=== PATIENT | male | born 1955 | race Caucasian/White ===

== ENCOUNTER 2017-01-31 23:26 | Emergency (ER) | payer MEDICARE, OTHER ==
--- NOTE | ~2017-01-31 | CR93 ---
[facility] A Service of [facility] & [facility] / [facility] RADIOLOGY TEXT RESULTS PATIENT: FADUMO DUGGAN LOCATION: [facility] : 57 UNIT #: [id number] AGE: [address]: Meli Bal MD SEX: M ORDER DR: [id number] [facility] [address] [place], [place] [address] [id number] E MR#: [id number] Acc #: [id number] NAME: FADUMO DUGGAN : 1955 SEX: M STUDY DATE/TIME: 02/01/2017 22:40 UNIT: [facility] ROOM: STUDY DESCRIPTION: CR Elbow Min 3 Views Lt Attending Physician: Meli Bal M.D. Ordering Physician: Meli Bal M.D. Primary Care Physician: No Primary Care Physician MEDICAL IMAGING REPORT This report is preliminary unless electronic signature is present EXAM Left elbow 01/31/2017 at 2252 INDICATION Elbow pain after fall today. FINDINGS 3 views of the left elbow were obtained. There is no fracture or malalignment. There is no joint effusion. There is some mild degenerative spurring about the epicondyles of the distal humerus. IMPRESSION Mild degenerative spurring about the elbow, otherwise negative. No acute findings. Dictated by... Nehemias Watson Jr., M.D. THIS IS AN ELECTRONICALLY VERIFIED REPORT Nehemias Watson Jr., M.D. at 02/01/2017 12:38 PM TRACIE/lilo TD: 02/01/2017 09:24 JOB #: [id number] MEDICAL IMAGING REPORT COPY
--- NOTE | ~2017-01-31 | CR141 ---
[facility] A Service of [facility] RADIOLOGY TEXT RESULTS PATIENT: FADUMO DUGGAN LOCATION: [facility] : 57 UNIT #: [id number] AGE: [address]: Meli Bal MD SEX: M ORDER DR: [id number] [facility] [address] [place], [place] [address] [id number] E MR#: [id number] Acc #: [id number] NAME: FADUMO DUGGAN : 1955 SEX: M STUDY DATE/TIME: 01/31/2017 22:50 UNIT: [facility] ROOM: STUDY DESCRIPTION: CR Hand Min 3 Views Lt Attending Physician: Meli Bal M.D. Ordering Physician: Meli Bal M.D. Primary Care Physician: No Primary Care Physician MEDICAL IMAGING REPORT This report is preliminary unless electronic signature is present EXAM Left hand, 01/31 at 2250 INDICATIONS Hand laceration and pain after fall today. FINDINGS 3 views of the left hand were obtained. There is some mild osteoarthritic change in the distal interphalangeal joints of the fingers and thumb. No acute fracture or malalignment is seen. 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 Dictated by... Nehemias Watson Jr., M.D. THIS IS AN ELECTRONICALLY VERIFIED REPORT Nehemias Watson Jr., M.D. at 02/01/2017 12:38 PM TRACIE/jimmie TD: 02/01/2017 09:11 JOB #: [id number] MEDICAL IMAGING REPORT COPY
--- NOTE | ~2017-01-31 | CR20 ---
[facility] A Service of [facility] RADIOLOGY TEXT RESULTS PATIENT: FADUMO DUGGAN LOCATION: [facility] : 57 UNIT #: [id number] AGE: [address]: Meli Bal MD SEX: M ORDER DR: [id number] [place] [id number] [facility]. [place], [place] [address] [id number] E MR#: [id number] Acc #: [id number] NAME: FADUMO DUGGAN : 1955 SEX: M STUDY DATE/TIME: 01/31/2017 22:50 UNIT: [facility] ROOM: STUDY DESCRIPTION: CR Ankle Min 3 Views Lt Attending Physician: Meli Bal M.D. Ordering Physician: Meli Bal M.D. Primary Care Physician: No Primary Care Physician MEDICAL IMAGING REPORT This report is preliminary unless electronic signature is present EXAM Left ankle, 3 views. HISTORY Ankle pain after fall today. FINDINGS 3 views of left ankle demonstrate satisfactory bone alignment. Anterior plate and screw fixation of the distal tibia extending to the distal tibial metaphysis. The most distal fixation screw is backed out approximately 1 cm. Lateral side plate and screw fixation of the distal fibula. Generalized demineralization. Mild degenerative changes. No acute fracture. IMPRESSION 1. No acute finding. Internal fixation distal tibia and fibula. The most distal fixation screw in the tibia has backed out 1 cm along the anterior margin of the distal tibial metaphysis. 2. No acute fracture. 3. Mild degenerative changes. Dictated by... Boogie Castrejon M.D. THIS IS AN ELECTRONICALLY VERIFIED REPORT Boogie Castrejon M.D. at 02/01/2017 11:27 PM DFL/mihir TD: 02/01/2017 09:09 JOB #: [id number] MEDICAL IMAGING REPORT [facility] A Service of [facility] RADIOLOGY TEXT RESULTS PATIENT: FADUMO DUGGAN LOCATION: [facility] : 57 UNIT #: [id number] AGE: [address]: Meli Bal MD SEX: M ORDER DR: COPY
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
[~2017-01-31 23:26] MED LIST: LORTAB 5/500 TA1 TA1 PO
[2017-02-01 00:23] LABS: AMPHETAMINE NEG (NEG); BARBITURATES NEG (NEG); BENZODIAZEPINES POS (NEG); COCAINE NEG (NEG); MARIJUANA NEG (NEG); OPIATES NEG (NEG); TRICYCLIC ANTIDEPRESSANTS NEG (NEG); U METHADONE NEG (NEG)
== END 2017-02-01 01:18 | disposition home or self-care (01) ==
LOC: CED 23:26
PROVIDERS: Emergency Medicine
DX: S50.312A Abrasion of left elbow, initial encounter (principal); S60.512A Abrasion of left hand, initial encounter; F10.10 Alcohol abuse, uncomplicated; F17.210 Nicotine dependence, cigarettes, uncomplicated; Z23 Encounter for immunization; V28.4XXA Motorcycle driver injured in noncollision transport accident in traffic accident, initial encounter
CPT/HCPCS: 36415; 72040; 73080; 73130; 73610; 80307; 90471; 90715; 96374; 99284; G0480; J1885